=== PATIENT | female | born 1980 | race Caucasian/White ===

== ENCOUNTER 2016-08-08 10:32 | Inpatient (IN) | payer OTHER ==
[~2016-08-08] VITALS: Ht 167.6 cm; Wt 80.5 kg
[~2016-08-08 10:32] MED LIST: [UNRECOGNIZED DRUG - OTHER] PO
--- NOTE | 2016-08-08 11:10 | Progress Note ---
Progress Note Date of Service August 08, 2016. Progress Note Outpatient Note 35 F at term here to r/o labor. Cervix 3-4/80/-2/posterior FHT Cat 1 GBS negative Will keep as outpatient to rule out labor
[2016-08-08 11:39] VITALS: Ht 167.6 cm; Wt 80.5 kg
[2016-08-08] MEDS ORDERED: ACET325T96 PO (11:45)
[2016-08-08] MEDS ORDERED: LACTATED RINGER'S 1000ML 1,000 ML IV PRN (13:23)
[2016-08-08] MEDS ORDERED: LACTATED RINGER'S 1000ML 1,000 ML IV SCH ×2 (13:23→13:56)
[2016-08-08] MEDS ORDERED: OXYTOCIN 30 UNITS/500ML NSS IV ONE (13:37)
[2016-08-08 13:44] LABS: HEMATOCRIT 35.3 % (37-47); MEAN CORPUSCULAR HEMOGLOBIN 29.7 pg (25-34); MEAN PLATELET VOLUME 9.8 fL (7.4-10.4); PLATELET COUNT 316 K/uL (130-400); RED BLOOD COUNT 4.01 M/uL (4.2-5.4); WHITE BLOOD COUNT 12.24 K/uL (4.8-10.8)
[2016-08-08 13:49] LABS: MEAN CORPUSCULAR HGB CONC 33.7 g/dl (32-36)
[2016-08-08] MEDS ORDERED: ACETAMINOPHEN 325 MG TAB PO PRN (14:00)
[2016-08-08] MEDS ORDERED: HYDROCORTISONE ACETATE 25 MG SUPP PR PRN (14:00)
[2016-08-08] MEDS ORDERED: OXYTOCIN 30 UNITS/500ML NSS IV PRN (14:00)
[2016-08-08] MEDS ORDERED: DIPHTHERIA/TETANUS/PERTUSSIS 0.5 ML SYR/VIAL IM. ONE (14:00)
[2016-08-08] MEDS ORDERED: SUPERCREAM 0.870 % 15GM JAR EXT PRN (14:00)
[2016-08-08] MEDS ORDERED: ACETAMINOPHEN/CODEINE 300/30MG TAB PO PRN ×2 (14:00)
[2016-08-08] MEDS ORDERED: LANOLIN OINT EXT PRN ×2 (14:00)
[2016-08-08] MEDS ORDERED: BENZOCAINE 20% AER SPR 82.5 GM CAN EXT PRN (14:00)
--- NOTE | 2016-08-08 14:07 | Vaginal Delivery Summary ---
Vaginal Delivery Summary live female [place] with Apgars 9/10 and nuchal cord x1 delivered without any problems. Delayed cord clamping. Placenta delivered spontaneously and intact. NO tears. EBL 200 ml. Final sponge and instrument count are correct. Mom and baby stable.
[2016-08-08 16:50] VITALS: BP 112/65; PULSE 85; TEMP 36.6; O2SAT 98
[2016-08-08] MEDS: IBUPROFEN 600 MG TAB PO PRN ×2 (18:06→22:11)
[2016-08-08 19:35] VITALS: BP 117/73; PULSE 80; TEMP 36.6
[2016-08-08] MEDS: DOCUSATE SODIUM 100 MG CAP PO SCH (20:16)
[2016-08-08 23:00] VITALS: BP 120/74; PULSE 85; TEMP 36.6
[2016-08-09 03:30] VITALS: BP 111/76; PULSE 88; TEMP 36.5
[2016-08-09] MEDS: IBUPROFEN 600 MG TAB PO PRN ×3 (03:38→12:09)
[2016-08-09 07:35] VITALS: BP 113/71; PULSE 78; TEMP 36.7
[2016-08-09] MEDS ORDERED: PRENATAL VITAMIN TAB PO SCH (08:00)
[2016-08-09] MEDS ORDERED: FERROUS SULFATE 325 MG TAB PO SCH (08:00)
[2016-08-09] MEDS: DOCUSATE SODIUM 100 MG CAP PO SCH (08:15)
[2016-08-09] MEDS ORDERED: MTR600X PO (09:10)
--- NOTE | 2016-08-09 09:12 | Discharge Instructions ---
Discharge Instructions Date of Service August 09, 2016. Admission Reason for Admission: R/O Labor Discharge Discharge Diagnosis / Problem: term delivered Discharge Goals Goal(s): Routine recovery after delivery Activity Recommendations Activity Limitations: as noted below Lifting Limitations: gradually increase as tolerated Exercise/Sports Limitations: as tolerated May Resume Sexual Activity: after follow-up appointment Shower/Bathe: no limitations Driving or Machine Use: resume 3 days after discharge . Instructions / Follow-Up Instructions / Follow-Up ACTIVITY RECOMMENDATIONS: * Gradual return to full activity over the next 2-3 weeks. * No lifting - nothing heavier than baby over the next 2-3 weeks. * Do not engage in vigorous exercise, sexual activity or sports until cleared by your physician. * Do not drive or operate any motorized equipment until cleared by your physician. * You may shower/bathe daily. BREAST CARE: If you are not breast feeding: * Wear a supportive bra 24 hours a day for one to two weeks. * Avoid stimulating your breasts and nipples as much as possible during the first few weeks after delivery. * When taking a shower, have the warm water hit your back, not breasts. * When your breasts feel full, apply ice packs. Usually three to four times a day helps ease the discomfort. * Take a mild pain medication (Tylenol/Motrin) when you are uncomfortable. If breast feeding: * Use breast milk to lubricate nipples. Lansinoh cream may be used for sore nipples. You do not need to remove cream prior to breast feeding. If using a different brand of cream, check the label for directions regarding removal of cream prior to nursing. * Wear a supportive bra. * If having problems with breasts or breast feeding, call a performance improvement consultant or your health care provider. EPISIOTOMY CARE: After delivery, if you have an episiotomy (stitches), the following steps will ease discomfort and aid healing. * For the first 24 hours after delivery, place ice packs next to your episiotomy to help reduce swelling. * After the first 24 hour-period, sitz baths, either portable or in the tub, are suggested. A shower with a shower arm sprayed over the episiotomy may be comforting. * Sylvia care should be done after each voiding and bowel movement. Squirt warm water from a plastic bottle over the perineum (region of the body between the anus and urinary opening) and pat dry. * Use Dermoplast to ease discomfort. Shake container. [place] directly over the episiotomy. * Place a Tucks on a clean sanitary pad next to your episiotomy. OVER THE COUNTER MEDICATION: * For discomfort or pain, you may use Acetaminophen (Tylenol), Ibuprofen (Advil ), or Naproxen (Aleve) following the package directions. * For constipation you may use Colace following the package directions. SPECIAL CARE INSTRUCTIONS: When you are discharged from the hospital, it is important for you to follow the instructions listed below: * During the first week at home, you should be able to care for yourself and your baby. In addition, the usual light household activities are encouraged. * Limit your activities to the way you feel. Do not try to clean the house or move furniture. Be sensible. * If you actively engage in sports and have done so up until the time of your delivery, you may resume these activities as soon as you feel able. This may take up to one month or even longer. Use good judgment. * Continue to take your vitamins for at least six weeks after the of your baby. * Your diet need not be limited unless you were on a special diet before your delivery. Breast-feeding mothers need around 2500 calories per day and at least 64-80 ounces of fluid per day (8 to 10 glasses). * You should eat foods from the four major food groups. Crash diets or fad diets are to be avoided. Eating lean meats, fresh fruits and vegetables, low-fat dairy products, high fiber foods and a regular exercise program, will help you get back to your pre- weight without putting your health at risk. * Constipation is sometimes a problem after delivery. Take a mild laxative as needed. If breast feeding, Milk of Magnesia is acceptable to use. You may use a suppository or Fleets enema if no episiotomy. * A daily shower or tub bath is suggested. Be sure to thoroughly and gently dry the perineum. * A bloody vaginal discharge will usually continue until around four weeks post . A small amount of bleeding may continue for as long as six weeks. Vaginal discharge changes from the bright red bleeding after delivery to pink then brownish and finally yellowish-pink before becoming white and disappearing. * Bleeding may increase with activity. Your first period may come in 4-8 weeks. If you are breast feeding, your period may be delayed even longer. * [place] (sex) can begin whenever both you and your partner feel comfortable and do not have any form of genital infection. It is recommended that you wait until after your return appointment and discuss with your physician. If you have questions, please talk to your health care practitioner. A condom should be used to prevent infection and . * Foreplay, gentle intercourse and lubrication is very important the first several times to prevent pain. A water-based lubricant such as K-Y jelly or Astroglide may be used. * Tampons may be used six weeks after delivery. * Douching should be avoided for 6 weeks after delivery. * If you have RH negative blood and your baby is RH positive, you will receive RHOGAM by injection prior to discharge. The nurse will give you a card to keep with you that has the date and place that you received RHOGAM after delivery. * During your care, you had a Rubella screen done to check for the presence of rubella antibodies in your blood. If your test was negative, you will receive a Rubella vaccine prior to discharge. This vaccine may cause a fever, soreness at the injection site and flu-like symptoms. If these symptoms persist, notify your health care practitioner. is not advised for three months after a Rubella vaccine. There is a higher chance of having a baby with defects if conceived within three months of getting the vaccine. * If you were discharged 24 hours from delivery or before 48 hours: Visiting nurses will come to your home 48 hours after discharge to assess you and your baby. The visiting nurse will meet with you while you are in the hospital to arrange a time and get directions to your home. * Verbalizes understanding of car seat law as reviewed with patient nursing. * Car Seat hand-out given and reviewed with patient by nursing. * Shaken baby information reviewed with patient by nursing. Call you doctor if: * Heavy bleeding (saturating several pads an hour) or passing clots the size of your fist. * A fever >101 degrees F (38.3 degrees C) on two occasions four hours apart and/or chills. * Unusual pain in the pelvic or vaginal areas. * "Baby Blues" lasting longer than two weeks. If you have any questions or concerns, call your health care practitioner at . FOLLOW-UP VISIT: * Please call the office at to schedule a 6 week examination. It is important you keep this appointment. * It is important for you to make arrangements for either yearly or twice yearly check-ups thereafter. Current Hospital Diet Patient's current hospital diet: Regular OB Diet Discharge Diet Recommended Diet: Regular OB Diet Fluid Restriction: None Pending Studies Studies pending at discharge: no Medical Emergencies . Who to Call and When: Medical Emergencies: If at any time you feel your situation is an emergency, please call 911 immediately. . Non-Emergent Contact Non-Emergency issues call your: Primary Care Provider . . "Provider Documentation" section prepared by Yaw Schmitz. . VTE Core Measure Inpt VTE Proph given/why not?: Treatment not indicated
--- NOTE | 2016-08-09 09:18 | OB/GYN Progress Note ---
[employer] Progress Note Date of Service August 09, 2016. Subjective conversation w/ patient, conversation w/ family, physical exam Ambulation: ambulating normally Voiding: no voiding problems Diet Tolerance: Regular Diet Lochia: Small Feeding Type: Bottle Feeding Objective Vital Signs Date Time Temp Pulse Resp B/P Pulse Ox O2 Delivery O2 Flow Rate FiO2 08/09/16 07:35 36.7 78 18 113/71 Room Air 08/09/16 07:35 Room Air 08/09/16 03:30 36.5 88 16 111/76 Room Air 08/08/16 23:00 36.6 85 18 120/74 Room Air 08/08/16 23:00 Room Air 08/08/16 19:35 Room Air 08/08/16 19:35 36.6 80 18 117/73 Room Air 08/08/16 16:50 98 Room Air 08/08/16 16:50 36.6 85 18 112/65 98 Room Air Physical Exam General Appearance: WELL-APPEARING, NO APPARENT DISTRESS Abdomen: non tender, soft Fundus: Firm Extremities: normal range of motion, non-tender, normal inspection, no pedal edema Laboratory Results Last 24 Hours Test 08/08/16 13:34 08/09/16 06:40 White Blood Count 12.24 K/uL Red Blood Count 4.01 M/uL Hemoglobin 11.9 g/dL 11.2 g/dL Hematocrit 35.3 % 34.0 % Mean Corpuscular Volume 88.0 fL Mean Corpuscular Hemoglobin 29.7 pg Mean Corpuscular Hemoglobin Concent 33.7 g/dl RDW Standard Deviation 46.1 fL RDW Coefficient of Variation 14.2 % Platelet Count 316 K/uL Mean Platelet Volume 9.8 fL Nucleated RBC Absolute Count (auto) 0.02 K/uL Nucleated Red Blood Cells % 0.1 % Assessment and Plan Post- Day Number: 1 Continue Routine Care: discharged
[2016-08-09 09:28] VITALS: BP_DIAS 71; PULSE 78; TEMP 36.7
[2016-08-09 11:00] VITALS: BP 119/79; PULSE 84; TEMP 36.5
[2016-08-09] MEDS ORDERED: BISACODYL 5 MG TABEC PO SCH (20:00)
[2016-08-10] MEDS ORDERED: BISACODYL 10 MG SUPP PR PRN (07:00)
== END 2016-08-09 14:40 | disposition home or self-care (01) | DRG 775 ==
LOC: C.LD 10:32 → C.OPB 10:32 → C.LD 13:24 → C.OPB 13:24 → C.OBG 16:31
PROVIDERS: ADMIT Obstetrics & Gynecology; ATTEND Obstetrics & Gynecology
PROC: 10E0XZZ Delivery of Products of Conception, External Approach (ICD-10-PCS; principal; 2016-08-08)
DX: O69.81X0 Labor and delivery complicated by cord around neck, without compression, not applicable or unspecified (principal); O09.529 Supervision of elderly multigravida, unspecified trimester; Z3A.38 38 weeks gestation of pregnancy; Z37.0 Single live birth

== ENCOUNTER 2017-06-06 10:11 | Emergency (ER) | payer OTHER ==
[~2017-06-06] VITALS: Ht 167.6 cm; Wt 55.0 kg
[~2017-06-06 10:11] MED LIST changes: +ACET-1693 PO; +MTR600X PO
[2017-06-06 10:19] VITALS: TEMP 36.5; Ht 167.6 cm; Wt 55.0 kg
[2017-06-06] MEDS ORDERED: KETOROLAC TROMETHAMINE 30 MG/ML VIAL IV STA (10:38)
[2017-06-06] MEDS ORDERED: SODIUM CHLORIDE 0.9% 1000ML 1,000 ML IV STA (10:38)
--- NOTE | 2017-06-06 10:43 | EMERGENCY ROOM VISIT NOTE ---
History Report prepared by Celi: Ines Maldonado Under the Supervision of: Dr. Abel Mesa M.D. First contact with patient: 10:34 Chief Complaint: ABDOMINAL PAIN Stated Complaint: ABDOMINAL PAIN Nursing Triage Summary: pt here with bilateral lower abd pains since this am. pt states right more than left. pt states does not have r ovary. denies n/v/d. History of Present Illness The patient is a 36 year old female who presents to the Emergency Room with complaints of constant lower abdominal pain beginning this morning at 0730. Pain is located on both sides and in the center of her lower abdomen. She rates the pain as an 8/10, she has pain when she urinates, and the pain is greater on the right side than on the left. She denies any nausea, vomiting, or diarrhea. She denies any chance of . No vaginal discharge or bleeding. Source of History: patient Onset: 0730 this morning Position: abdomen (RLQ, LLQ) Symptom Intensity: 8/10 Timing: constant Associated Symptoms: No nausea, No vomiting, No diarrhea Review of Systems See HPI for pertinent positives and negatives. A total of ten systems were reviewed and were otherwise negative. Past Medical & Surgical Medical Problems: (1) ANXIETY STATE NOS (2) rule out labor (3) TOBACCO USE DISORDER (4) [place] Teeth Removal Family History Cancer Heart disease Hypertension Kidney disease Kidney stones Social History Smoking Status: Current Every Day Smoker Alcohol Use: occasionally Marital Status: Housing Status: lives with family Occupation Status: employed Current/Historical Medications Scheduled PRN Betamethasone Dip Augmented (Augmented Betamethasone D), 1 APPLN TOP BID PRN for rash Ibuprofen Tab (Motrin), 800 MG PO Q8H PRN for Pain Allergies Coded Allergies: Hydrocodone (Verified Adverse Reaction, Unknown, NAUSEA, 06/06/17) Physical Exam Vital Signs Date Time Temp Pulse Resp B/P (MAP) Pulse Ox O2 Delivery O2 Flow Rate FiO2 06/06/17 14:32 62 18 118/73 98 06/06/17 13:22 59 16 122/71 97 Room Air 06/06/17 11:40 54 16 119/62 96 Room Air 06/06/17 10:19 36.5 63 16 139/90 99 Room Air Physical Exam Physical Exam GENERAL: She is oriented to person, place, and time. She appears well- developed and well-nourished. She does not appear distressed. ____ HENT: Exam performed. Head: Normocephalic and atraumatic. Right Ear: External ear normal. No mastoid tenderness. Left Ear: External ear normal. No mastoid tenderness. Mouth/Throat: The oropharynx is clear and moist. No trismus in the jaw. No dental abscesses or uvula swelling. No oropharyngeal exudate or tonsillar abscesses. ____ EYES: Conjunctivae and EOM are normal. Pupils are equal, round, and reactive to light. Right eye exhibits no discharge. Left eye exhibits no discharge. No scleral icterus. ____ NECK: Normal range of motion. Neck supple. No JVD present. No spinous process tenderness present. No carotid bruit present. No rigidity. No tracheal deviation and normal range of motion present. No Brudzinski's sign and no Kernig 's sign noted. ____ CV: Normal rate, regular rhythm, normal heart sounds and intact distal pulses. There is no peripheral edema. Palpable radial pulses bue. ____ PULM/CHEST: Effort normal and breath sounds normal. No respiratory distress. No stridor. She has no wheezes. She has no rales. Chest Wall: She exhibits no tenderness. ____ ABD: No CVA tenderness. Abdomen soft. No guarding. Pain on palpation of the LLQ, suprapubic and RLQ area. Positive rebound tenderness with a McBurneys point. Rovsig negative. No rigidity. MUSC/SKEL: Normal range of motion. There is no peripheral edema, tenderness or deformity. LYMPH: No cervical adenopathy. ____ NEURO: She is alert and oriented to person, place, and time. She has normal strength. No cranial nerve deficit or sensory deficit. Coordination and gait normal. GCS eye subscore is 4. GCS verbal subscore is 5. GCS motor subscore is 6. Cerebellar tests wnl. ____ SKIN: Skin is warm and dry. She is not diaphoretic. ____ PSYCH: She has a normal mood and affect. Her behavior is normal. Judgment and thought content normal. ____ Medical Decision & Procedures ER Provider Diagnostic Interpretation: Radiology results as stated below per my review and radiologist interpretation: ABDOMEN AND PELVIS CT WITH IV CONTRAST CT DOSE: 266.40 mGy.cm HISTORY: Acute generalized abdominal pain R/O APPY TECHNIQUE: Multiaxial CT images of the abdomen and pelvis were performed following the use of intravenous contrast. A dose lowering technique was utilized adhering to the principles of ALARA. COMPARISON STUDY: Right upper quadrant ultrasound 04/25/2011. FINDINGS: Minimal subsegmental bibasilar atelectasis. No pneumatosis or pneumoperitoneum. Imaged inferior cardiac chambers are unremarkable. The liver, gallbladder, spleen, pancreas and adrenal glands are within normal limits. Bilateral kidneys and ureters are within normal limits. Urinary bladder is also unremarkable. Trace fluid within the endometrial canal. Peripherally enhancing 1.7 x 1.1 cm cystic structure within the region of the left adnexum. Moderate free pelvic fluid is noted with free fluid tracking along the right pericolic gutter into the perihepatic space. Aorta is normal in course and caliber. No bulky adenopathy. No bowel obstruction or focal bowel wall thickening. Appendix is air-filled and appears nondilated within the abdominal right lower quadrant. Soft tissues are unremarkable. Bones appear intact. IMPRESSION: 1. Moderate amount of free fluid in the dependent pelvis is noted which is also seen tracking along the right pericolic gutter and perihepatic space. 2. Peripherally enhancing cystic structure of the left adnexum measuring up to 1.7 cm suggests involuting follicle. 3. Normal appearance of the visualized appendix. No bowel obstruction or focal bowel wall thickening. Electronically signed by: Dharmesh Goodwin M.D. 06/06/2017 12:03 PM Dictated Date/Time: 06/06/2017 11:53 AM PELVIC COMPLETE NON OB HISTORY: 36 years-old Female llq pain r/o ovarian torsion acute left lower quadrant pelvic pain COMPARISON: CT abdomen and pelvis 06/06/2017 TECHNIQUE: Multiple real-time sonographic images of the deep pelvic structures were obtained transabdominally and transvaginally assessing grayscale appearance, color and spectral flow FINDINGS: TRANSABDOMINAL: Anteflexed uterus measures 10.2 x 3.8 x 5.7 cm. Endometrium measures 0.7 cm. No myometrial mass lesions identified. TRANSVAGINAL: 9 mm endometrium. Anteflexed uterus measures 9.5 x 5.3 x 5.9 cm and is unremarkable. Right ovary is not seen. The patient reportedly has history of prior right-sided oophorectomy. The left ovary measures 3.8 x 1.6 x 2.6 cm. Thick-walled centrally cystic structure of the left ovary measures 1.5 x 0.8 x 1.3 cm with increased peripheral vascularity suggesting involuting follicle. Arterial inflow to the left ovary is confirmed. Mild amount of complex free fluid is seen within the pelvis. IMPRESSION: 1. 1.5 cm thick-walled cystic structure of the left ovary suggests involuting follicle correlating with the finding seen on CT study of same day. Mild amount of complex free fluid within the pelvis is likely physiologic from follicle rupture. 2. Prior right-sided oophorectomy. 3. Unremarkable sonographic appearance of the uterus and endometrium. The above report was generated using voice recognition software. It may contain grammatical, syntax or spelling errors. Electronically signed by: Dharmesh Goodwin M.D. 06/06/2017 2:08 PM Dictated Date/Time: 06/06/2017 2:04 PM Laboratory Results 06/06/17 11:00 Red Blood Count 4.87, Mean Corpuscular Volume 85.8, Mean Corpuscular Hemoglobin 29.6, Mean Corpuscular Hemoglobin Concent 34.4, Mean Platelet Volume 10.2, Neutrophils (%) (Auto) 83.0, Lymphocytes (%) (Auto) 11.7, Monocytes (%) (Auto) 3.9, Eosinophils (%) (Auto) 0.8, Basophils (%) (Auto) 0.3, Neutrophils # (Auto) 8.45, Lymphocytes # (Auto) 1.19, Monocytes # (Auto) 0.40, Eosinophils # (Auto) 0.08, Basophils # (Auto) 0.03 06/06/17 11:00 Test 06/06/17 11:00 White Blood Count 10.18 K/uL (4.8-10.8) Red Blood Count 4.87 M/uL (4.2-5.4) Hemoglobin 14.4 g/dL (12.0-16.0) Hematocrit 41.8 % (37-47) Mean Corpuscular Volume 85.8 fL (80-100) Mean Corpuscular Hemoglobin 29.6 pg (25-34) Mean Corpuscular Hemoglobin Concent 34.4 g/dl (32-36) Platelet Count 249 K/uL (130-400) Mean Platelet Volume 10.2 fL (7.4-10.4) Neutrophils (%) (Auto) 83.0 % Lymphocytes (%) (Auto) 11.7 % Monocytes (%) (Auto) 3.9 % Eosinophils (%) (Auto) 0.8 % Basophils (%) (Auto) 0.3 % Neutrophils # (Auto) 8.45 K/uL (1.4-6.5) Lymphocytes # (Auto) 1.19 K/uL (1.2-3.4) Monocytes # (Auto) 0.40 K/uL (0.11-0.59) Eosinophils # (Auto) 0.08 K/uL (0-0.5) Basophils # (Auto) 0.03 K/uL (0-0.2) RDW Standard Deviation 44.5 fL (36.4-46.3) RDW Coefficient of Variation 14.2 % (11.5-14.5) Immature Granulocyte % (Auto) 0.3 % Immature Granulocyte # (Auto) 0.03 K/uL (0.00-0.02) Urine Color YELLOW Urine Appearance CLEAR (CLEAR) Urine pH 7.0 (4.5-7.5) Urine Specific [place] 1.015 (1.000-1.030) Urine Protein NEG (NEG) Urine Glucose (UA) NEG (NEG) Urine Ketones NEG (NEG) Urine Occult Blood NEG (NEG) Urine Nitrite NEG (NEG) Urine Bilirubin NEG (NEG) Urine Urobilinogen NEG (NEG) Urine Leukocyte Esterase NEG (NEG) Urine Test NEG (NEG) Anion Gap 7.0 mmol/L (3-11) Est Creatinine Clear Calc Drug Dose 94.2 ml/min Estimated GFR () 126.1 Estimated GFR (Non- 108.8 BUN/Creatinine Ratio 9.4 (10-20) Calcium Level 8.5 mg/dl (8.5-10.1) Total Bilirubin 0.3 mg/dl (0.2-1) Aspartate Amino Transf (AST/SGOT) 9 U/L (15-37) Alanine Aminotransferase (ALT/SGPT) 18 U/L (12-78) Alkaline Phosphatase 52 U/L (45-117) Total Protein 6.8 gm/dl (6.4-8.2) Albumin 3.4 gm/dl (3.4-5.0) Globulin 3.4 gm/dl (2.5-4.0) Albumin/Globulin Ratio 1.0 (0.9-2) Lipase 190 U/L (73-393) Laboratory results reviewed by me Medications Administered Medications (Trade) Dose Ordered Sig/Ace Route Start Time Stop Time Status Last Admin Dose Admin Sodium Chloride 1,000 ml @ 999 mls/hr Q1H1M STAT IV 06/06/17 10:38 06/06/17 11:38 DC 06/06/17 11:02 999 MLS/HR Ketorolac Tromethamine (Toradol Inj) 15 mg NOW STAT IV 06/06/17 10:38 06/06/17 10:41 DC 06/06/17 11:03 15 MG ED Course 1035 : The patient was evaluated in room A2. A complete history and physical exam was performed. 1415: Labs within normal limits. CT of the abdomen did not show any evidence of appendicitis. I reevaluated the patient at this time. Her vitals are stable and she states her pain has dissipated after receiving the analgesia. The pelvic ultrasound showed a left ovarian cyst, no evidence of ovarian torsion.. She will be discharged. The patient refused a pelvic exam. DISCHARGE - Plan of care discussed with patient and questions answered. The patient was given both verbal and printed discharge instructions. The patient verbalized understanding and ability to comply. The patient is to seek outpatient follow up as noted in the discharge instructions. The patient verbalized understanding and ability to comply. The patient is discharged in stable condition. The patient was instructed to return for worsening symptoms. Medical Decision Labs within normal limits. CT of the abdomen did not show any evidence of appendicitis. I reevaluated the patient at this time. Her vitals are stable and she states her pain has dissipated after receiving the analgesia. The pelvic ultrasound showed a left ovarian cyst, no evidence of ovarian torsion.. She will be discharged. The patient refused a pelvic exam. DISCHARGE - Plan of care discussed with patient and questions answered. The patient was given both verbal and printed discharge instructions. The patient verbalized understanding and ability to comply. The patient is to seek outpatient follow up as noted in the discharge instructions. The patient verbalized understanding and ability to comply. The patient is discharged in stable condition. The patient was instructed to return for worsening symptoms. Impression Primary Impression: Ovarian cyst Scribe Attestation The scribe's documentation has been prepared under my direction and personally reviewed by me in its entirety. I confirm that the note above accurately reflects all work, treatment, procedures, and medical decision making performed by me. The chart was completed utilizing [employer] Speech voice recognition software. Grammatical errors, random word insertions, pronoun errors, and incomplete sentences are an occasional consequence of this system due to software limitations, ambient noise, and hardware issues. Any formal questions or concerns about the content, text, or information contained within the body of this dictation should be directly addressed to the physician for clarification. Departure Information Dispostion Home / Self-Care Prescriptions Ibuprofen Tab (MOTRIN) 800 Mg Tab 800 MG PO Q8H Y for Pain, #30 TAB Prov: Abel Mesa M.D. 06/06/17 Referrals Martha Marinelli D.O. (PCP) Forms Call Back Authorization, HOME CARE DOCUMENTATION FORM, IMPORTANT VISIT INFORMATION Patient Instructions My [facility] Additional Instructions Return to the emergency department if you develop fever greater than 100.4, develop sever nausea and vomitting, or your symptoms worsten Problem Qualifiers Primary Impression: Ovarian cyst Laterality: left Qualified Codes: N83.202 - Unspecified ovarian cyst, left side
[2017-06-06] MEDS ORDERED: OPTIRAY 320 IV PRN (10:45)
[2017-06-06 11:13] LABS: BASO % 0.3 %; BASO ABS # 0.03 K/uL (0-0.2); EOS % 0.8 %; EOS ABS # 0.08 K/uL (0-0.5); HEMATOCRIT 41.8 % (37-47); HEMOGLOBIN 14.4 g/dL (12.0-16.0); IG# 0.03 K/uL (0.00-0.02); LYMPH % 11.7 %; LYMPH ABS # 1.19 K/uL (1.2-3.4); MEAN CELL VOLUME 85.8 fL (80-100); MEAN CORPUSCULAR HEMOGLOBIN 29.6 pg (25-34); MEAN CORPUSCULAR HGB CONC 34.4 g/dl (32-36); MEAN PLATELET VOLUME 10.2 fL (7.4-10.4); MONO % 3.9 %; NEUT ABS # 8.45 K/uL (1.4-6.5); PLATELET COUNT 249 K/uL (130-400); RED CELL DISTRIBUTION WIDTH CV 14.2 % (11.5-14.5); RED CELL DISTRIBUTION WIDTH SD 44.5 fL (36.4-46.3); WHITE BLOOD COUNT 10.18 K/uL (4.8-10.8)
[2017-06-06 11:27] LABS: ALBUMIN 3.4 gm/dl (3.4-5.0); CALCIUM 8.5 mg/dl (8.5-10.1); CREATININE 0.71 mg/dl (0.60-1.20); POTASSIUM 3.8 mmol/L (3.5-5.1)
[2017-06-06 11:30] LABS: TOTAL PROTEIN 6.8 gm/dl (6.4-8.2)
[2017-06-06] MEDS ORDERED: [UNRECOGNIZED DRUG - CODE] TOP (11:31)
--- NOTE | 2017-06-06 12:04 | DIAGNOSTIC IMAGING REPORT ---
ABDOMEN AND PELVIS CT WITH IV CONTRAST CT DOSE: 266.40 mGy.cm HISTORY: Acute generalized abdominal pain R/O APPY TECHNIQUE: Multiaxial CT images of the abdomen and pelvis were performed following the use of intravenous contrast. A dose lowering technique was utilized adhering to the principles of ALARA. COMPARISON STUDY: Right upper quadrant ultrasound 04/25/2011. FINDINGS: Minimal subsegmental bibasilar atelectasis. No pneumatosis or pneumoperitoneum. Imaged inferior cardiac chambers are unremarkable. The liver, gallbladder, spleen, pancreas and adrenal glands are within normal limits. Bilateral kidneys and ureters are within normal limits. Urinary bladder is also unremarkable. Trace fluid within the endometrial canal. Peripherally enhancing 1.7 x 1.1 cm cystic structure within the region of the left adnexum. Moderate free pelvic fluid is noted with free fluid tracking along the right pericolic gutter into the perihepatic space. Aorta is normal in course and caliber. No bulky adenopathy. No bowel obstruction or focal bowel wall thickening. Appendix is air-filled and appears nondilated within the abdominal right lower quadrant. Soft tissues are unremarkable. Bones appear intact. IMPRESSION: 1. Moderate amount of free fluid in the dependent pelvis is noted which is also seen tracking along the right pericolic gutter and perihepatic space. 2. Peripherally enhancing cystic structure of the left adnexum measuring up to 1.7 cm suggests involuting follicle. 3. Normal appearance of the visualized appendix. No bowel obstruction or focal bowel wall thickening. Electronically signed by: Dharmesh Goodwin M.D. 06/06/2017 12:03 PM Dictated Date/Time: 06/06/2017 11:53 AM
--- NOTE | 2017-06-06 14:10 | DIAGNOSTIC IMAGING REPORT ---
PELVIC COMPLETE NON OB HISTORY: 36 years-old Female llq pain r/o ovarian torsion acute left lower quadrant pelvic pain COMPARISON: CT abdomen and pelvis 06/06/2017 TECHNIQUE: Multiple real-time sonographic images of the deep pelvic structures were obtained transabdominally and transvaginally assessing grayscale appearance, color and spectral flow FINDINGS: TRANSABDOMINAL: Anteflexed uterus measures 10.2 x 3.8 x 5.7 cm. Endometrium measures 0.7 cm. No myometrial mass lesions identified. TRANSVAGINAL: 9 mm endometrium. Anteflexed uterus measures 9.5 x 5.3 x 5.9 cm and is unremarkable. Right ovary is not seen. The patient reportedly has history of prior right-sided oophorectomy. The left ovary measures 3.8 x 1.6 x 2.6 cm. Thick-walled centrally cystic structure of the left ovary measures 1.5 x 0.8 x 1.3 cm with increased peripheral vascularity suggesting involuting follicle. Arterial inflow to the left ovary is confirmed. Mild amount of complex free fluid is seen within the pelvis. IMPRESSION: 1. 1.5 cm thick-walled cystic structure of the left ovary suggests involuting follicle correlating with the finding seen on CT study of same day. Mild amount of complex free fluid within the pelvis is likely physiologic from follicle rupture. 2. Prior right-sided oophorectomy. 3. Unremarkable sonographic appearance of the uterus and endometrium. The above report was generated using voice recognition software. It may contain grammatical, syntax or spelling errors. Electronically signed by: Dharmesh Goodwin M.D. 06/06/2017 2:08 PM Dictated Date/Time: 06/06/2017 2:04 PM
[2017-06-06] MEDS ORDERED: IBUP-1451 PO (14:22)
[2017-06-06 14:32] VITALS: BP 118/73; PULSE 62; O2SAT 98
== END 2017-06-06 14:32 | disposition home or self-care (01) ==
LOC: C.EDB 10:13 → C.EDA 14:32
DX: N83.202 Unspecified ovarian cyst, left side (principal); F17.200 Nicotine dependence, unspecified, uncomplicated; Z88.6 Allergy status to analgesic agent; Z82.49 Family history of ischemic heart disease and other diseases of the circulatory system; Z84.1 Family history of disorders of kidney and ureter